=== PATIENT | female | born 1960 | race Caucasian/White ===

== ENCOUNTER 2018-06-05 14:45 | Inpatient (IN) | payer OTHER, MEDICAID ==
[~2018-06-05] VITALS: Ht 162.6 cm; Wt 104.3 kg
[2018-06-05 14:49] VITALS: BP_SYST 137
[2018-06-05] MEDS ORDERED: ATEN50TA PO (15:03)
[2018-06-05] MEDS ORDERED: LIP20 PO (15:03)
[2018-06-05] MEDS ORDERED: BLAC80CA PO (15:03)
[2018-06-05] MEDS ORDERED: PARO40TA80 PO (15:03)
[2018-06-05] MEDS ORDERED: CAT.1 PO (15:03)
[2018-06-05] MEDS ORDERED: ALEN10TA6 PO (15:03)
[2018-06-05] MEDS ORDERED: PRO40 PO (15:03)
[2018-06-05] MEDS ORDERED: CLI.05P TD (15:07)
[2018-06-05] MEDS ORDERED: ASPIRIN 325 MG TABLET PO ONE (15:45)
[2018-06-05 15:48] LABS: CALCIUM 8.5 mg/dL (8.4-11.0); CREATININE 0.73 mg/dL (0.55-1.30); HEMATOCRIT 39.5 % (36-48); HEMOGLOBIN 13.3 g/dL (12.0-16.0); MEAN CORPUSCULAR HEMOGLOBIN 30 pg (27-31); MEAN CORPUSCULAR HGB CONC 34 % (32-36); MEAN CORPUSCULAR VOLUME 89 fL (79.0-98.0); PLATELET COUNT (AUTO) 322 K/uL (130-430); POTASSIUM 3.4 mmol/L (3.5-5.1); RED BLOOD CELL COUNT(AUTO) 4.42 MIL/uL (4.2-6.2); RED CELL DISTRIBUTION WIDTH 13.4 % (9.0-15.0)
[2018-06-05 15:49] LABS: BASOPHILS % (AUTO) 0.4 % (0.0-2.0); EOSINOPHILS # (AUTO) 0.2 K/uL (0.0-0.4); EOSINOPHILS % (AUTO) 1.9 % (0.0-4.0); LYMPHOCYTES # (AUTO) 2.9 K/uL (1.0-5.5); LYMPHOCYTES % (AUTO) 36.4 % (20.5-51.5); MONOCYTES # (AUTO) 0.4 K/uL (0.0-1.0); MONOCYTES % (AUTO) 4.9 % (1.7-9.3); NEUTROPHILS # (AUTO) 4.5 K/uL (1.8-7.7); NEUTROPHILS % (AUTO) 56.4 % (40.0-70.0)
[2018-06-05 15:52] LABS: ALBUMIN 3.4 g/dL (3.4-4.8); TOTAL BILIRUBIN 0.3 mg/dL (0.0-1.0)
[2018-06-05 16:04] LABS: INR 1.1 (0.8-1.2)
[2018-06-05] MEDS ORDERED: NITROGLYCERIN 0.4 MG TAB.SUBL SL ONE (16:30)
[2018-06-05 17:14] LABS: BILIRUBIN,URINE NEGATIVE (NEGATIVE); CLARITY/URINE CLEAR (CLEAR); COLOR,URINE YELLOW (YELLOW); GLUCOSE,URINE NEGATIVE (NEGATIVE); KETONES,URINE NEGATIVE (NEGATIVE); LEUKOCYTE ESTERASE ,URINE NEGATIVE (NEGATIVE); NITRITE, URINE NEGATIVE (NEGATIVE); PH,URINE 6.5 (5.0-8.0); PROTEIN URINE NEGATIVE (NEGATIVE); UROBILINOGEN,URINE 0.2 (0.2-1.0)
[2018-06-05 17:17] LABS: BLOOD, URINE TRACE (NEGATIVE)
[2018-06-05 17:21] LABS: BACTERIA,URINE FEW /HPF (None Seen); MUCUS,URINE None Seen /LPF (None Seen); RBC,URINE 0-3 /HPF (0-3); WBC,URINE NONE SEEN /HPF (0-3)
[2018-06-05 17:22] LABS: URIC ACID CRYSTALS,URINE 0-10 /HPF (None Seen)
[2018-06-05] MEDS ORDERED: cloNIDine HCL 0.1 MG TABLET PO PRN (18:00)
[2018-06-05] MEDS ORDERED: POTASSIUM CHLORIDE 20 MEQ TAB.PRT.SR PO ONE (18:00)
[2018-06-05] MEDS ORDERED: NITROGLYCERIN 0.4 MG TAB.SUBL SL PRN (18:00)
[2018-06-05 18:30] VITALS: BP_SYST 144
[2018-06-05] MEDS ORDERED: traMADol HCL HCL 50 MG TABLET (ULTRAM) PO PRN (18:45)
[2018-06-05] MEDS ORDERED: KETOROLAC TROMETHAMINE 15 MG VIAL IVP PRN (18:45)
[2018-06-05 19:00] VITALS: BP_SYST 132
[2018-06-05 19:10] VITALS: BP_SYST 153
[2018-06-05] MEDS: PANTOPRAZOLE SODIUM 40 MG TAB PO SCH (20:07)
[2018-06-05] MEDS ORDERED: ATORVASTATIN 20 MG TABLET PO SCH (21:00)
[2018-06-05] MEDS ORDERED: PARoxetine HCL 20 MG TABLET PO SCH (21:00)
[2018-06-06 07:29] LABS: BASOPHILS % (AUTO) 0.5 % (0.0-2.0); EOSINOPHILS # (AUTO) 0.2 K/uL (0.0-0.4); EOSINOPHILS % (AUTO) 2.4 % (0.0-4.0); HEMATOCRIT 38.8 % (36-48); HEMOGLOBIN 12.9 g/dL (12.0-16.0); LYMPHOCYTES # (AUTO) 2.4 K/uL (1.0-5.5); LYMPHOCYTES % (AUTO) 30.2 % (20.5-51.5); MEAN CORPUSCULAR HEMOGLOBIN 30 pg (27-31); MEAN CORPUSCULAR HGB CONC 33 % (32-36); MEAN CORPUSCULAR VOLUME 89 fL (79.0-98.0); MONOCYTES # (AUTO) 0.5 K/uL (0.0-1.0); MONOCYTES % (AUTO) 6.6 % (1.7-9.3); NEUTROPHILS # (AUTO) 4.8 K/uL (1.8-7.7); NEUTROPHILS % (AUTO) 60.3 % (40.0-70.0); PLATELET COUNT (AUTO) 300 K/uL (130-430); RED BLOOD CELL COUNT(AUTO) 4.35 MIL/uL (4.2-6.2); RED CELL DISTRIBUTION WIDTH 13.1 % (9.0-15.0)
[2018-06-06 08:00] VITALS: BP_SYST 140
[2018-06-06 08:05] LABS: ANION GAP 11 (5-15); CALCIUM 8.6 mg/dL (8.4-11.0); CHLORIDE 105 mmol/L (98-107); CREATININE 0.72 mg/dL (0.55-1.30); GLUCOSE 96 mg/dL (70-99); POTASSIUM 3.7 mmol/L (3.5-5.1); SODIUM SERUM 142 mmol/L (136-145); UREA NITROGEN, BLOOD 8 mg/dL (8-21)
[2018-06-06 08:06] LABS: GFR AFRICAN AMERICAN 107 mL/min (>90)
[2018-06-06 08:28] LABS: ALANINE AMINOTRANSFERASE 22 U/L (12-78); ASPARTATE AMINOTRANSFERASE 15 U/L (10-37); FREE T4 (FREE THYROXINE) 0.9 ng/dl (0.8-1.5); THYROID STIMULATING HORMONE 2.12 uIu/mL (0.36-3.74); TOTAL BILIRUBIN 0.2 mg/dL (0.0-1.0)
[2018-06-06 08:59] LABS: CHOLESTEROL 148 mg/dL (<200); HDL CHOLESTEROL 41 mg/dL (>55); TRIGLYCERIDES 220 mg/dL (30-150)
[2018-06-06 09:00] LABS: LDL CHOLESTEROL 85 mg/dL (<100)
[2018-06-06] MEDS ORDERED: ATENOLOL 50 MG TABLET (TENORMIN) PO SCH (09:00)
[2018-06-06] MEDS ORDERED: ASPIRIN 81 MG TABLET(ECOTRIN) PO SCH (09:00)
[2018-06-06] MEDS: PANTOPRAZOLE SODIUM 40 MG TAB PO SCH (09:23)
[2018-06-06] MEDS ORDERED: ESTRADIOL 0.05 MG/24 HR TD SCH (11:00)
[2018-06-06 12:53] VITALS: BP_SYST 152
[2018-06-06 16:00] VITALS: BP_SYST 137
[2018-06-06 18:10] VITALS: BP_SYST 140
[2018-06-09] MEDS ORDERED: ALENDRONATE SODIUM 10 MG TABLET (FOSAMAX) PO SCH (06:00)
[2018-06-13] MEDS ORDERED: ESTRADIOL 0.05 MG/24 HR TD SCH (09:00)
== END 2018-06-06 18:43 | disposition home or self-care (01) | DRG 313 ==
LOC: SED 14:45 → STU 17:31
PROVIDERS: ADMIT Internal Medicine; ATTEND Internal Medicine
DX: R07.89 Other chest pain (principal); E87.1 Hypo-osmolality and hyponatremia; I10 Essential (primary) hypertension; E78.00 Pure hypercholesterolemia, unspecified; E66.9 Obesity, unspecified; E78.5 Hyperlipidemia, unspecified; J44.9 Chronic obstructive pulmonary disease, unspecified; K21.9 Gastro-esophageal reflux disease without esophagitis; F17.210 Nicotine dependence, cigarettes, uncomplicated; Z68.39 Body mass index [BMI] 39.0-39.9, adult; Z88.5 Allergy status to narcotic agent; Z88.8 Allergy status to other drugs, medicaments and biological substances; Z90.710 Acquired absence of both cervix and uterus; E87.6 Hypokalemia
CPT/HCPCS: 36415; 71045; 80053; 80061; 81000-TC; 82550-TC; 83880; 84439; 84443-TC; 84484; 85025; 85379; 85610-TC; 93005; 93306; G0378